=== PATIENT | female | born 1985 | race Caucasian/White ===

== ENCOUNTER 2016-04-14 21:25 | Emergency (ER) | payer SELFPAY ==
[~2016-04-14] VITALS: Ht 160 cm; Wt 69.5 kg
[~2016-04-14 21:25] MED LIST: DENIES MEDS
[2016-04-14 21:35] VITALS: Ht 160 cm; Wt 69.5 kg
== END 2016-04-15 00:15 | disposition left against medical advice (07) ==
LOC: FTE 21:25 → E/R 04-15 00:15
DX: Z53.21 Procedure and treatment not carried out due to patient leaving prior to being seen by health care provider (principal)

== ENCOUNTER 2017-02-01 08:23 | Emergency (ER) | payer BC ==
[~2017-02-01] VITALS: Ht 167.6 cm; Wt 75.5 kg
[2017-02-01 08:24] VITALS: Ht 167.6 cm; Wt 75.5 kg
[2017-02-01] MEDS ORDERED: ONDANSETRON 4 MG INJ IV STA (09:27)
[2017-02-01] MEDS ORDERED: SOD CHLORIDE 0.9% 1,000 ML IV ONE (09:30)
[2017-02-01 09:52] LABS: URINE BLOOD (Dip) POC Trace-intact (NEGATIVE)
[2017-02-01] MEDS ORDERED: ACET500C5 PO (11:23)
--- NOTE | 2017-02-01 14:55 | ERD ---
ER Documentation Chief Complaint Chief Complaint HEADACHE, NAUSEA, VOMITTING - LMP 10/02/16 HPI This is a 31 year female presenting to emergency department for headache, nausea and vomiting 5 days. Patient is currently 18 weeks with last menstrual period 10/02/2018. Patient is a A4. Patient denies any vaginal bleeding or vaginal discharge. Denies pelvic pain. No abdominal pain. No dysuria or hematuria. Patient went to her primary care provider last week and was prescribed amoxicillin and Reglan. Patient states she has been taking amoxicillin. Patient denies trying Reglan. Patient has been able to tolerate p.o. fluids. ROS All systems reviewed and are negative except as per history of present illness. Medications Home Meds Active Scripts Acetaminophen* (Tylophen*) 500 Mg Capsule, 1 CAP PO Q6H Y for PAIN AND OR ELEVATED TEMP, #20 CAP Prov:REY MARINA NP 02/01/17 Reported Medications [Denies Meds] No Conflict Check 08/10/10 Allergies Allergies: Coded Allergies: No Known Allergies (Verified Allergy, Mild, 08/10/10) PMhx/Soc Medical and Surgical Hx: pt denies Medical Hx, pt denies Surgical Hx History of Surgery: No Anesthesia Reaction: No Hx Neurological Disorder: No Hx Respiratory Disorders: No Hx Cardiac Disorders: No Hx Psychiatric Problems: No Hx Miscellaneous Medical Probl: No Hx Alcohol Use: Yes (socially) Hx Substance Use: No Hx Tobacco Use: No Smoking Status: Never smoker Physical Exam Vitals Vital Signs Date Time Temp Pulse Resp B/P Pulse Ox O2 Delivery O2 Flow Rate FiO2 02/01/17 08:24 98.5 97 19 134/74 99 Physical Exam Const: No acute distress, alert Head: Atraumatic Eyes: Normal Conjunctiva ENT: Normal External Ears, Nose and Mouth. Neck: Full range of motion..~ No meningismus. Resp: Clear to auscultation bilaterally. No wheezing, rhonchi or crackles. No stridor or labored breathing. Cardio: Regular rate and rhythm, no murmurs Abd: Soft, non tender, non distended. Normal bowel sounds Skin: No petechiae or rashes Back: No midline or flank tenderness Ext: No cyanosis, or edema Neur: Awake and alert Psych: Normal Mood and Affect Results 24 hrs Laboratory Tests Test 02/01/17 09:53 Bedside Urine pH (LAB) 7.5 Bedside Urine Protein (LAB) Trace Bedside Urine Glucose (UA) Negative Bedside Urine Ketones (LAB) Negative Bedside Urine Blood Trace-intact Bedside Urine Nitrite (LAB) Negative Bedside Urine Leukocyte Esterase (L Negative Current Medications Medications (Trade) Dose Ordered Sig/Jose Carlos Route PRN Reason Start Time Stop Time Status Last Admin Dose Admin Ondansetron HCl 4 mg 4 mg ONCE STAT IV 02/01/17 09:27 02/01/17 09:31 DC 02/01/17 10:01 Sodium Chloride (NS) 1,000 ml @ 1,000 mls/hr Q1H ONCE IV 02/01/17 09:30 02/01/17 10:29 DC 02/01/17 10:02 Procedures/MDM MDM: This is a 31-year-old female presenting to emergency department for nausea , vomiting and headache while for 5 days. Patient is currently 18 weeks as is a A4. Patient denies vaginal bleeding or vaginal discharge. No pelvic, back or abdominal pain. Vital signs are stable. Patient is afebrile. IV access obtained and patient given 1 L IV fluid bolus of normal saline and Zofran IV. Upon reassessment, patient states nausea has improved significantly. No active vomiting on the ED. Patient continues to have mild headache. No dizziness, loss of vision, change in vision, blurry vision or diplopia. No change in mood or behavior. Patient denies this being the worst headache she is ever had. Patient states she would like to go home and take Tylenol. No trauma to head or fall. No loss of consciousness. No nausea or vomiting. No confusion or altered mental status. Patient denies ataxic gait, slurred speech, numbness of the face or body, weakness, clumsiness, or incoordination. Low suspicion for CVA, TIA, meningitis, subdural hematoma, intracranial hemorrhage or mass. Differential diagnosis includes but not limited to tension headache, migraine headache, cluster headache, sinus headache, sinusitis, trigeminal neuralgia, herpes zoster and postherpetic neuralgia. Patient is appropriate for outpatient management will be given prescription for Tylenol. Instructed patient to follow-up with primary care provider in the next 2-3 days for reassessment. Resources provided. Return to ED for any high fever, chest pain, difficulty breathing, shortness breath, wheezing, vomiting, diarrhea, abdominal pain or any new or worsening symptoms. Patient verbalizes understanding. All questions answered at discharge. Disclaimer: Inadvertent spelling and grammatical errors are likely due to EHR/ dictation software use and do not reflect on the overall quality of patient care. Also, please note that the electronic time recorded on this note does not necessarily reflect the actual time of the patient encounter. Departure Diagnosis: Primary Impression: Nausea and vomiting Vomiting type: unspecified Vomiting Intractability: unspecified Qualified Code: R11.2 - Nausea and vomiting, intractability of vomiting not specified, unspecified vomiting type Condition: Stable Patient Instructions: : Your Second Trimester Changes, Nausea and Vomiting-Adult Referrals: JONO PERES [facility] YOU HAVE RECEIVED A MEDICAL SCREENING EXAM AND THE RESULTS INDICATE THAT YOU DO NOT HAVE A CONDITION THAT REQUIRES URGENT TREATMENT IN THE EMERGENCY DEPARTMENT. FURTHER EVALUATION AND TREATMENT OF YOUR CONDITION CAN WAIT UNTIL YOU ARE SEEN IN YOUR DOCTORS OFFICE WITHIN THE NEXT 1-2 DAYS. IT IS YOUR RESPONSIBILITY TO MAKE AN APPOINTMENT FOR FOLOW-UP CARE. IF YOU HAVE A PRIMARY DOCTOR --you should call your primary doctor and schedule an appointment IF YOU DO NOT HAVE A PRIMARY DOCTOR YOU CAN CALL OUR PHYSICIAN REFERRAL HOTLINE AT IF YOU CAN NOT AFFORD TO SEE A PHYSICIAN YOU CAN CHOSE FROM THE FOLLOWING [facility] [address] [facility]. [facility] [address] [facility] [address] [facility]. [facility] [address] [facility]. [facility] [address] [facility]. [facility]. [address] [facility]. [facility] YOU HAVE RECEIVED A MEDICAL SCREENING EXAM AND THE RESULTS INDICATE THAT YOU DO NOT HAVE A CONDITION THAT REQUIRES URGENT TREATMENT IN THE EMERGENCY DEPARTMENT. FURTHER EVALUATION AND TREATMENT OF YOUR CONDITION CAN WAIT UNTIL YOU ARE SEEN IN YOUR DOCTORS OFFICE WITHIN THE NEXT 1-2 DAYS. IT IS YOUR RESPONSIBILITY TO MAKE AN APPOINTMENT FOR FOLOW-UP CARE. IF YOU HAVE A PRIMARY DOCTOR --you should call your primary doctor and schedule and appointment IF YOU DO NOT HAVE A PRIMARY DOCTOR YOU CAN CALL OUR PHYSICIAN REFERRAL HOTLINE AT . IF YOU CAN NOT AFFORD TO SEE A PHYSICIAN YOU CAN CHOSE FROM THE FOLLOWING [facility] INSTITUTIONS: [facility] [address] [place] [address] [facility] [address] [place] [address] [facility] + [facility] [address] [place] [address] [employer] [place] [address] [facility] [address] [place] [address] OFFICE FAX , [facility] [address] [place] [address] [facility] [address] [place] [address] DR KENNEY, [facility] [address] [facility], [facility] [address] [address] [address] [facility] [address] [place] [address] [facility] [address] [place] [address] [address] [facility] [address] - [address], [facility] [address] ELISSA [address]QUEZ [address] [facility]. [address], [facility] [address] [address] [address] [place], [place] [id number] Additional Instructions: Call your primary care doctor TOMORROW for an appointment during the next 2-3 days.See the doctor sooner or return here if your condition worsens before your appointment time. Return to ED for any high fever, chest pain, difficulty breathing, shortness breath, wheezing, vomiting, diarrhea, abdominal pain or any new or worsening symptoms. REY MARINA NP Feb 01, 2017 14:55
== END 2017-02-01 11:49 | disposition home or self-care (01) ==
LOC: E/R 08:23
DX: R11.2 Nausea with vomiting, unspecified (principal)
CPT/HCPCS: 81003; 96374; 99284; J2405; J7030

== ENCOUNTER 2017-03-15 11:15 | Outpatient (CLI) | payer BC ==
[~2017-03-15] VITALS: Ht 167.6 cm; Wt 76.8 kg
[~2017-03-15 11:15] MED LIST changes: +ACET500C5 PO
[2017-03-15 11:27] VITALS: BP 108/65; PULSE 95; Ht 167.6 cm; Wt 76.8 kg
[2017-03-15] MEDS ORDERED: PNV11TAB PO (11:29)
--- NOTE | 2017-03-15 11:58 | RADRPT ---
PROCEDURE: US cervix CLINICAL INDICATION: labor TECHNIQUE: Limited OB ultrasound was performed to evaluate the cervix COMPARISON: No prior studies are available for comparison. FINDINGS: There is a single live intrauterine . Normal cardiac activity is identified at a rat e of 140 beats per minute. presentation is cephalic. Placenta is anterior grade 1 to II. The cervix is closed and measures 4.7 cm. No funneling is seen. IMPRESSION: 1. Single live intrauterine . 2. Cervix is closed and measures 4.7 cm RPTAT: HH .Jared Yoo MD, Date Time Electronically viewed and signed by .Jared Yoo MD, on 03/15/2017 11:58 .W/
[2017-03-15 12:23] LABS: ADD UMIC YES; UR ASCORBIC ACID 20 mg/dL (NEGATIVE); UR BACTERIA FEW /HPF (NONE SEEN); UR BILIRUBIN (Dip) NEGATIVE (NEGATIVE); UR BLOOD (Dip) NEGATIVE (NEGATIVE); UR CLARITY CLEAR (CLEAR); UR COLOR YELLOW (YELLOW); UR GLUCOSE (Dip) 1+ mg/dL (NEGATIVE); UR KETONES (Dip) TRACE mg/dL (NEGATIVE); UR LEUKOCYTE ESTERASE (Dip) 1+ Leu/ul (NEGATIVE); UR MUCUS FEW /HPF (NONE SEEN); UR NITRITE (Dip) NEGATIVE (NEGATIVE); UR RBC 2 /HPF (0-5); UR SPECIFIC GRAVITY (Dip) 1.019 (1.003-1.030); UR SQUAMOUS EPITHELIAL CELL FEW /HPF (FEW); UR TOTAL PROTEIN (Dip) NEGATIVE (NEGATIVE); UR UROBILINOGEN (Dip) NEGATIVE (NEGATIVE)
--- NOTE | 2017-03-15 13:54 | TRIAGE ---
OB Triage Datetime Report Generated by CPN: 03/15/2017 13:54 Datetime: 03/15/2017 13:34 Stage of : OB Triage Datetime: 03/15/2017 13:32 Labor Evaluation Frequency: 0 Monitor Mode: External Resting Tone [place]: Relaxed Comments: off due to gestational age Pain Assessment Pain Scale: 0 Pain Presence: None/Denies Pain Type: N/A Pain Goal: 3 Pain Relief Measures: Comfort Measures Datetime: 03/15/2017 12:50 Stage of : OB Triage Datetime: 03/15/2017 12:47 Stage of : OB Triage Datetime: 03/15/2017 12:22 Labor Evaluation Frequency: 0 Monitor Mode: External Resting Tone [place]: Relaxed Comments: OFF DUE TO GESTATIONAL AGE Pain Assessment Pain Scale: 0 Pain Presence: None/Denies Pain Type: N/A Pain Relief Measures: Comfort Measures Pain Assessment Comments: DENIES AT PRESENT Datetime: 03/15/2017 11:34 Stage of : OB Triage Datetime: 03/15/2017 11:23 Stage of : OB Triage Assessment Type: Triage Maternal Assessment Level of Consciousness: Fully Conscious DTR's/Clonus: DTRs 2+; No Clonus Headache: Denies Blurred Vision: No Respiratory Effort: Unlabored; Regular Rhythm; Equal Expansion Breath Sounds, Left: Clear and Equal Breath Sounds, Right: Clear and Equal Nausea/Vomiting: Denies RUQ Epigastric Pain: Denies Facial Edema: None Temperature Route: Axillary Fall Risk Assessment History of Falling: (0) No Secondary Diagnosis: (0) No Ambulatory Aid: (0) Bedrest/Nurse Assist IV Therapy: (0) No Gait: (0) Normal/Bedrest/Immobile Mental Status: (0) Oriented to Own Ability Fall Score: 0 Fall Risk Score Definition: No Risk: No action required Labor Evaluation Frequency: 0 Monitor Mode: External Resting Tone [place]: Relaxed Heart Rate FHR Baseline Rate: 143 Monitor Mode: Doppler Pain Assessment Pain Scale: 8 Pain Presence: Intermittent Pain Type: Cramping Pain Location: Perineum Pain Goal: 3 Pain Relief Measures: Comfort Measures Datetime: 03/15/2017 11:22 Time of Arrival: 03/15/2017 11:09 EGA: 23.3 Arrived By: Ambulatory Arrived From: Home Chief Complaint: C/O LOWER PELVIC PAIN SINCE LAST TH THAT IS INTERRMITTENT. DENIES LEAKING OF FLUID OR BLEEDING Movement: Present Contractions: Denies/Absent Rupture of Membranes: Denies Vaginal Discharge: Denies Recent Sexual Intercouse: Denies Abdominal Trauma: Not Applicable Patient Complaints: Cramping Time Provider Notified: 03/15/2017 12:50 Provider Notified: elvin Initial Plan: TOCO, DOPPLER FHT, U/A, cl
--- NOTE | 2017-03-15 14:17 | PN ---
Triage Information Date/Time Reason for visit: Abd/pelvic pain Weeks of Gestation 23+ /Para .. Diabetes: none Hypertention: none Objective Vital Signs Date Time Temp Pulse Resp B/P Pulse Ox O2 Delivery O2 Flow Rate FiO2 03/15/17 11:27 98.4 95 108/65 Heart Rate: 140's Contractions: None Results/Medications Results 24 hrs Laboratory Tests Test 03/15/17 11:30 Urine Color YELLOW Urine Clarity CLEAR Urine pH 6.0 Urine Specific [place] 1.019 Urine Ketones TRACE A Urine Nitrite NEGATIVE Urine Bilirubin NEGATIVE Urine Urobilinogen NEGATIVE Urine Leukocyte Esterase 1+ H Urine Microscopic RBC 2 Urine Microscopic WBC 42 H Urine Squamous Epithelial Cells FEW Urine Bacteria FEW A Urine Mucus FEW A Urine Hemoglobin NEGATIVE Urine Glucose 1+ H Urine Total Protein NEGATIVE Disposition: Discharge Assessment/Plan CXL wnl No CTXs Patient's questions answered And precautions given She follows up with Primary physician JONI TADEO M.D. Mar 15, 2017 14:17
== END 2017-03-15 13:45 | disposition home or self-care (01) ==
LOC: OBT 11:15 → L-D 11:15 → OBT 13:45
PROVIDERS: ATTEND Obstetrics & Gynecology
DX: O26.893 Other specified pregnancy related conditions, third trimester (principal); Z3A.23 23 weeks gestation of pregnancy; R10.30 Lower abdominal pain, unspecified
CPT/HCPCS: 76817; 81001; 87086; G0463

== ENCOUNTER 2017-05-05 16:31 | Outpatient (CLI) | END 2017-05-05 17:45 | disposition left against medical advice (07) ==

== ENCOUNTER 2017-05-10 09:20 | Outpatient (CLI) | END 2017-05-10 11:00 | disposition home or self-care (01) ==

== ENCOUNTER 2017-06-03 17:25 | Inpatient (IN) | END 2017-06-05 18:30 | disposition home or self-care (01) | DRG 778 ==

== ENCOUNTER 2017-06-09 19:07 | Outpatient (CLI) | END 2017-06-09 21:57 | disposition home or self-care (01) ==

== ENCOUNTER 2017-06-22 13:43 | Outpatient (CLI) | END 2017-06-22 17:10 | disposition home or self-care (01) ==

== ENCOUNTER 2017-07-03 18:06 | Inpatient (IN) | END 2017-07-07 13:52 | disposition home or self-care (01) | DRG 775 ==